=== PATIENT | male | born 1940 | race Caucasian/White ===

== ENCOUNTER → 2020-02-10 | Outpatient (CLI) | payer MEDICARE ==
[~2020-02-10] MED LIST: AMLO-150 PO; BECL8.7A7 INH; BUPR200T31 PO; LOSA1TAB22 PO; LOSA50TA14 PO; MIRA25TA PO; NEBI5TAB3 PO; POTA20TA89 PO; RIVA20TA PO; TRAM50TA2 PO
== END | disposition home or self-care (01) ==
LOC: CVU 12:49
PROVIDERS: ATTEND Physician Assistant Medical
DX: I08.3 Combined rheumatic disorders of mitral, aortic and tricuspid valves (principal); I10 Essential (primary) hypertension; I48.91 Unspecified atrial fibrillation
CPT/HCPCS: 93306

== ENCOUNTER 2020-07-05 10:14 | Day surgery (SDC) | payer MEDICARE ==
[~2020-07-05] VITALS: Ht 193 cm; Wt 136.4 kg
[2020-07-05 11:24] VITALS: BP 194/100
[2020-07-05] MEDS ORDERED: ATOR40TA PO (11:30)
[2020-07-05] MEDS ORDERED: FURO20TA3 PO (11:30)
[2020-07-05] MEDS ORDERED: POTA20TA6 PO (11:30)
[2020-07-05] MEDS ORDERED: CARV3.1212 PO (11:30)
[2020-07-05] MEDS ORDERED: LOSA25TA25 PO (11:30)
[2020-07-05] MEDS ORDERED: SERT50TA PO (11:52)
[2020-07-05] MEDS ORDERED: FENTANYL PF 100 MCG/2ML ONE (11:53)
[2020-07-05] MEDS ORDERED: LIDOCAINE 2%, 20ML ONE (11:53)
[2020-07-05] MEDS ORDERED: MIDAZOLAM 1 MG/ML, 5ML ONE (11:53)
[2020-07-05 12:21] LABS: BASOPHILS # (AUTO) 0.02 x10^3/uL (0-0.1); BASOPHILS % (AUTO) 0 % (0-1); EOSINOPHILS # (AUTO) 0.17 x10^3/uL (0-0.4); EOSINOPHILS % (AUTO) 2 % (1-7); LYMPHOCYTES # (AUTO) 1.61 x10^3/uL (1-3.4); LYMPHOCYTES % (AUTO) 21 % (22-44); MD NO; MEAN CORPUSCULAR HEMOGLOBIN 31.2 pg (27.5-34.5); MEAN CORPUSCULAR HGB CONC 32.8 g/dL (33.2-36.2); MEAN CORPUSCULAR VOLUME 95.1 fL (81-97); MEAN PLATELET VOLUME 8.6 fL (7.4-10.4); MONOCYTES # (AUTO) 0.71 x10^3/uL (0.2-0.8); MONOCYTES % (AUTO) 9 % (2-9); NEUTROPHILS # (AUTO) 5.26 x10^3/uL (1.8-6.8); NEUTROPHILS % (AUTO) 68 % (42-75); PLATELET COUNT 164 x10^3/uL (130-400); RED BLOOD COUNT 5.52 x10^6/uL (4.38-5.82); RED CELL DISTRIBUTION WIDTH 15.1 % (9.4-14.8)
[2020-07-05 12:33] LABS: ANION GAP 4 mmol/L (5-15); CALCIUM 9.2 mg/dL (8.5-10.1); CHLORIDE 108 mmol/L (98-107)
[2020-07-05 12:35] LABS: CREATININE 1.31 mg/dL (0.7-1.3)
[2020-07-05] MEDS ORDERED: SODIUM CHLORIDE 0.9% 1,000 ML IV SCH (13:00)
== END 2020-07-05 15:15 | disposition home or self-care (01) ==
LOC: CACL 10:14
PROVIDERS: ATTEND Internal Medicine Cardiovascular Disease
DX: I27.20 Pulmonary hypertension, unspecified (principal); I11.0 Hypertensive heart disease with heart failure; I50.21 Acute systolic (congestive) heart failure; I42.9 Cardiomyopathy, unspecified; I48.91 Unspecified atrial fibrillation; J45.909 Unspecified asthma, uncomplicated; G47.30 Sleep apnea, unspecified; Z79.01 Long term (current) use of anticoagulants; Z79.02 Long term (current) use of antithrombotics/antiplatelets; Z79.899 Other long term (current) drug therapy; Z87.891 Personal history of nicotine dependence; Z88.1 Allergy status to other antibiotic agents; Z91.013 Allergy to seafood; Z91.041 Radiographic dye allergy status
CPT/HCPCS: 36415; 80048; 85025; 93451; C1894; J2250; J3010